=== PATIENT | male | born 1980 | race African-American/Black ===

== ENCOUNTER 2018-03-06 05:18 | Emergency (ER) | payer MEDICARE, OTHER ==
[2018-03-06] MEDS: FLUORESCEIN OPHTH 1 MG STRIP OD (08:15)
[2018-03-06] MEDS: TETRACAINE 0.5% OPHTH SOLN 4ML OD (08:15)
[2018-03-06] MEDS: NS 1,000 ML IV (08:50)
[2018-03-06] MEDS: IBUPROFEN 600 MG TAB PO (08:51)
[2018-03-06 09:08] LABS: BASO % 0.1 % (0.0-1.0); EOS % 0.2 % (0.0-3.0); HEMATOCRIT 41.4 % (42.0-52.0); HEMOGLOBIN 13.8 g/dl (13.5-17.5); IMMATURE GRANULOCYTE % 0.5 % (0-3.0); LYMPH # 2.7 10^3/uL (1.5-4.5); LYMPH % 18.8 % (24.0-44.0); MEAN CORPUSCULAR HEMOGLOBIN 30.6 pg (27.0-33.0); MEAN CORPUSCULAR HGB CONC 33.3 g/dl (32.0-36.5); MEAN CORPUSCULAR VOLUME 91.8 fl (80.0-96.0); MONO # 0.9 10^3/uL (0.0-0.8); MONO % 6.4 % (0.0-5.0); NEUTROPHILS # 10.4 10^3/uL (1.8-7.7); PLATELET COUNT, AUTOMATED 322 10^3/uL (150-450); RED BLOOD COUNT 4.51 10^6/uL (4.30-6.10); RED CELL DISTRIBUTION WIDTH 13.8 % (11.5-14.5); WHITE BLOOD COUNT 14.1 10^3/uL (4.0-10.0)
[2018-03-06 09:36] LABS: ANION GAP 6 MEQ/L (8-16); BLOOD UREA NITROGEN 12 MG/DL (7-18); CALCIUM LEVEL 8.7 MG/DL (8.5-10.1); CARBON DIOXIDE LEVEL 24 MEQ/L (21-32); CHLORIDE LEVEL 111 MEQ/L (98-107); CREATININE FOR GFR 0.88 MG/DL (0.70-1.30); ETHYL ALCOHOL (ETHANOL) 0.122 % (0.000-0.010); GLOMERULAR FILTRATION RATE > 60.0 (>60); GLUCOSE, FASTING 98 MG/DL (70-100); POTASSIUM SERUM 4.4 MEQ/L (3.5-5.1); SODIUM LEVEL 141 MEQ/L (136-145)
== END 2018-03-06 14:22 | disposition home or self-care (01) ==
LOC: M ED 05:18
DX: T76.11XA Adult physical abuse, suspected, initial encounter (principal); S00.11XA Contusion of right eyelid and periocular area, initial encounter; Y04.8XXA Assault by other bodily force, initial encounter; Y92.89 Other specified places as the place of occurrence of the external cause; F10.929 Alcohol use, unspecified with intoxication, unspecified; H11.421 Conjunctival edema, right eye; M54.9 Dorsalgia, unspecified; G89.29 Other chronic pain; F43.10 Post-traumatic stress disorder, unspecified; F17.200 Nicotine dependence, unspecified, uncomplicated; F33.9 Major depressive disorder, recurrent, unspecified; F41.9 Anxiety disorder, unspecified; Z79.899 Other long term (current) drug therapy
CPT/HCPCS: 70450

== ENCOUNTER 2018-08-12 22:00 | Inpatient (IN) | payer MEDICARE, OTHER ==
[2018-08-12 23:10] LABS: BASO % 0.2 % (0.0-1.0); EOS % 0.3 % (0.0-3.0); HEMATOCRIT 42.3 % (42.0-52.0); HEMOGLOBIN 14.4 g/dl (13.5-17.5); IMMATURE GRANULOCYTE % 0.4 % (0-3.0); LYMPH # 3.1 10^3/uL (1.5-4.5); LYMPH % 27.7 % (24.0-44.0); MEAN CORPUSCULAR HEMOGLOBIN 29.9 pg (27.0-33.0); MEAN CORPUSCULAR VOLUME 87.9 fl (80.0-96.0); MONO # 1.2 10^3/uL (0.0-0.8); MONO % 11.1 % (0.0-5.0); NEUTROPHILS # 6.7 10^3/uL (1.8-7.7); NEUTROPHILS % 60.3 % (36.0-66.0); PLATELET COUNT, AUTOMATED 316 10^3/uL (150-450); RED BLOOD COUNT 4.81 10^6/uL (4.30-6.10); RED CELL DISTRIBUTION WIDTH 13.9 % (11.5-14.5); WHITE BLOOD COUNT 11.2 10^3/uL (4.0-10.0)
[2018-08-13 00:01] LABS: AMPHETAMINES LEVEL URINE NEGATIVE (NEGATIVE); BARBITURATES URINE NEGATIVE (NEGATIVE); BENZODIAZEPINES URINE NEGATIVE (NEGATIVE); CANNABINOIDS URINE NEGATIVE (NEGATIVE); COCAINE METABOLITE URINE NEGATIVE (NEGATIVE); METHADONE URINE NEGATIVE (NEGATIVE); OPIATES URINE NEGATIVE (NEGATIVE); PHENCYCLIDINE URINE NEGATIVE (NEGATIVE)
[2018-08-13 00:02] LABS: ACETAMINOPHEN LEVEL < 2.0 UG/ML (10.0-30.0); ALBUMIN 4.4 GM/DL (3.2-5.2); ALBUMIN/GLOBULIN RATIO 1.22 (1.00-1.93); ALKALINE PHOSPHATASE 94 U/L (45-117); ALT/SGPT 67 U/L (12-78); ANION GAP 11 MEQ/L (8-16); AST/SGOT 37 U/L (7-37); BILIRUBIN,DIRECT 0.2 MG/DL (0.0-0.2); BILIRUBIN,TOTAL 0.7 MG/DL (0.2-1.0); BLOOD UREA NITROGEN 12 MG/DL (7-18); CALCIUM LEVEL 9.5 MG/DL (8.5-10.1); CARBON DIOXIDE LEVEL 21 MEQ/L (21-32); CHLORIDE LEVEL 106 MEQ/L (98-107); CPK CREATINE PHOSPHOKINASE 719 U/L (39-308); CREATININE FOR GFR 0.96 MG/DL (0.70-1.30); ETHYL ALCOHOL (ETHANOL) 0.005 % (0.000-0.010); GLOMERULAR FILTRATION RATE > 60.0 (>60); GLUCOSE, FASTING 88 MG/DL (70-100); MB/CK RELATIVE INDEX 0.63 (< OR =4); POTASSIUM SERUM 3.7 MEQ/L (3.5-5.1); SALICYLATE LEVEL 2.2 MG/DL (5.0-30.0); SODIUM LEVEL 138 MEQ/L (136-145); TROPONIN I < 0.02 NG/ML (< 0.10)
[2018-08-13 02:54] LABS: CPK CREATINE PHOSPHOKINASE 743 U/L (39-308); MB/CK RELATIVE INDEX 0.55 (< OR =4); TROPONIN I < 0.02 NG/ML (< 0.10)
[2018-08-13 05:46] LABS: KETONE, URINE AUTO RFX TRACE mg/dL (NEGATIVE); LEUKOCYTE ESTERASE UR AUTO RFX NEGATIVE (NEGATIVE); MUCUS, URINE RFX SMALL (NEGATIVE); NITRITE, URINE AUTO RFX NEGATIVE (NEGATIVE); RBC, URINE AUTO RFX 4 /HPF (0-3); SQUAM EPITHELIAL CELL UR AURFX 0 /HPF (0-6); WBC, URINE AUTO RFX 1 /HPF (0-3)
[2018-08-13] MEDS: LORazepam 2 MG TAB PO (09:30)
[2018-08-13] MEDS: SERTRALINE HCL 50 MG TAB PO (09:41)
[2018-08-13] MEDS: busPIRone 10 MG TAB PO ×2 (09:41→21:58)
[2018-08-13] MEDS: OMEPRAZOLE 20 MG CAP PO (09:41)
[2018-08-13] MEDS: VITAMIN D 1,000 INTERNATIONAL UNITS TABLET PO ×2 (09:41→21:58)
[2018-08-13] MEDS: IBUPROFEN 600 MG TAB PO (09:42)
[2018-08-13] MEDS: METOPROLOL TART 25 MG TABLET PO ×2 (09:43→21:59)
[2018-08-13] MEDS: CYCLOBENZAPRINE 10 MG TAB PO (10:02)
[2018-08-13] MEDS ORDERED: MAALOX 30 ML SUSP *UDC PO (14:00)
[2018-08-13] MEDS ORDERED: ACETAMINOPHEN TAB 650MG DOSE (2X325MG) PO (14:00)
[2018-08-13] MEDS ORDERED: MOM 30ML SUSPENSION UDC PO (14:00)
[2018-08-13] MEDS: traZODone 50 MG TAB PO (21:58)
[2018-08-13] MEDS: PRAZOSIN 1 MG CAP PO (22:01)
[2018-08-14] MEDS: SERTRALINE 100 MG TAB PO (09:39)
[2018-08-14] MEDS: THIAMINE 100 MG TAB PO (09:39)
[2018-08-14] MEDS: MULTIVITAMINS/MINERALS THERAP 1 TAB PO (09:41)
[2018-08-14] MEDS: VITAMIN D 1,000 INTERNATIONAL UNITS TABLET PO ×2 (09:41→21:46)
[2018-08-14] MEDS: OMEGA-3 1000MG CAPSULE PO (09:41)
[2018-08-14] MEDS: OMEPRAZOLE 20 MG CAP PO (09:41)
[2018-08-14] MEDS: busPIRone 10 MG TAB PO ×3 (09:41→21:46)
[2018-08-14] MEDS: METOPROLOL TART 25 MG TABLET PO ×2 (09:41→21:46)
[2018-08-14] MEDS: CYCLOBENZAPRINE 10 MG TAB PO (09:43)
[2018-08-14] MEDS: IBUPROFEN 600 MG TAB PO (09:43)
[2018-08-14 17:24] LABS: KETONE, URINE AUTO RFX NEGATIVE (NEGATIVE); LEUKOCYTE ESTERASE UR AUTO RFX NEGATIVE (NEGATIVE); MUCUS, URINE RFX SMALL (NEGATIVE); NITRITE, URINE AUTO RFX NEGATIVE (NEGATIVE); RBC, URINE AUTO RFX 5 /HPF (0-3); SPECIFIC GRAVITY UR AUTO RFX 1.024 (1.002-1.035); SQUAM EPITHELIAL CELL UR AURFX 0 /HPF (0-6); WBC, URINE AUTO RFX 3 /HPF (0-3)
[2018-08-14] MEDS: PRAZOSIN 1 MG CAP PO (21:44)
[2018-08-14] MEDS: traZODone 50 MG TAB PO (21:46)
[2018-08-15 07:05] LABS: HEMOGLOBIN 14.3 g/dl (13.5-17.5); MEAN CORPUSCULAR HEMOGLOBIN 29.9 pg (27.0-33.0); MEAN CORPUSCULAR HGB CONC 32.5 g/dl (32.0-36.5); MEAN CORPUSCULAR VOLUME 91.9 fl (80.0-96.0); PLATELET COUNT, AUTOMATED 298 10^3/uL (150-450); RED BLOOD COUNT 4.79 10^6/uL (4.30-6.10); RED CELL DISTRIBUTION WIDTH 13.8 % (11.5-14.5); WHITE BLOOD COUNT 9.9 10^3/uL (4.0-10.0)
[2018-08-15 07:38] LABS: ESTIMATED AVERAGE GLUCOSE 117 MG/DL (60-110); HEMOGLOBIN A1c 5.7 %
[2018-08-15 07:43] LABS: ALBUMIN 3.7 GM/DL (3.2-5.2); ALBUMIN/GLOBULIN RATIO 0.97 (1.00-1.93); ALKALINE PHOSPHATASE 89 U/L (45-117); ALT/SGPT 53 U/L (12-78); ANION GAP 8 MEQ/L (8-16); AST/SGOT 28 U/L (7-37); BILIRUBIN,TOTAL 0.5 MG/DL (0.2-1.0); BLOOD UREA NITROGEN 13 MG/DL (7-18); CARBON DIOXIDE LEVEL 24 MEQ/L (21-32); CHLORIDE LEVEL 110 MEQ/L (98-107); CPK CREATINE PHOSPHOKINASE 486 U/L (39-308); CREATININE FOR GFR 0.89 MG/DL (0.70-1.30); GLOMERULAR FILTRATION RATE > 60.0 (>60); GLUCOSE, FASTING 95 MG/DL (70-100); POTASSIUM SERUM 4.2 MEQ/L (3.5-5.1); SODIUM LEVEL 142 MEQ/L (136-145); T UPTAKE 29 % (33-40); THYROXINE (T4) 10.2 UG/DL (4.5-12.0); TOTAL PROTEIN 7.5 GM/DL (6.4-8.2)
[2018-08-15] MEDS: CYCLOBENZAPRINE 10 MG TAB PO (08:30)
[2018-08-15] MEDS: busPIRone 10 MG TAB PO (08:30)
[2018-08-15] MEDS: SERTRALINE 100 MG TAB PO (08:30)
[2018-08-15] MEDS: OMEGA-3 1000MG CAPSULE PO (08:31)
[2018-08-15] MEDS: VITAMIN D 1,000 INTERNATIONAL UNITS TABLET PO (08:31)
[2018-08-15] MEDS: METOPROLOL TART 25 MG TABLET PO (08:31)
[2018-08-15] MEDS: MULTIVITAMINS/MINERALS THERAP 1 TAB PO (08:31)
[2018-08-15] MEDS: THIAMINE 100 MG TAB PO (08:31)
[2018-08-15] MEDS: OMEPRAZOLE 20 MG CAP PO (08:31)
[2018-08-15] MEDS: IBUPROFEN 600 MG TAB PO (08:31)
[2018-08-15 11:35] LABS: HEPATITIS B SURFACE ANTIGEN NEGATIVE (NEGATIVE)
[2018-08-15 11:49] LABS: HEPATITIS C VIRUS ABY INDEX 0.1 INDEX (<0.8)
[2018-08-15 11:52] LABS: HEPATITIS B CORE ANTIBODY IGM NEGATIVE (NEGATIVE)
[2018-08-15 11:53] LABS: HEPATITIS A ANTIBODY IGM NEGATIVE (NEGATIVE)
[2018-08-15 11:54] LABS: HIV 1&2 SCREEN CENTAUR NEGATIVE (NEGATIVE)
== END 2018-08-15 13:10 | disposition home or self-care (01) | DRG 881 ==
LOC: M ED 22:00 → M ED INP 08-13 13:46 → M PSY 08-13 15:46
DX: F32.9 Major depressive disorder, single episode, unspecified (principal); I10 Essential (primary) hypertension; K21.9 Gastro-esophageal reflux disease without esophagitis; G47.00 Insomnia, unspecified; G47.33 Obstructive sleep apnea (adult) (pediatric); E66.9 Obesity, unspecified; R94.6 Abnormal results of thyroid function studies; M54.9 Dorsalgia, unspecified; N50.819 Testicular pain, unspecified; R74.8 Abnormal levels of other serum enzymes; Z68.32 Body mass index [BMI] 32.0-32.9, adult; Z91.5 Personal history of self-harm; Z79.899 Other long term (current) drug therapy

== ENCOUNTER 2020-08-11 12:09 | Emergency (ER) | payer MEDICARE, OTHER ==
[~2020-08-11] VITALS: Ht 185.4 cm; Wt 127.9 kg
[~2020-08-11 12:09] MED LIST: BUPR100T3 PO; BUSP10TA PO; CYCL-707 PO; FISH7.5C PO; IBUP-1022 PO; MELA3TAB49 PO; METO1TAB87 PO; OMEP1CAP73 PO; OMEP40CA97 PO; PRAZ1CAP PO; SERT-138 PO; SERT-141 PO; THIA100T7 PO; TRAZ-257 PO; UREA1CRE EX; UREA20CR4 TOP; VITA100067 PO; VITMTA PO
[2020-08-11 12:11] VITALS: BP 136/76
[2020-08-11] MEDS ORDERED: ATOR80TA59 PO (12:19)
[2020-08-11] MEDS ORDERED: VITA50005 PO (12:21)
[2020-08-11] MEDS ORDERED: BACT800T5 PO (13:05)
== END 2020-08-11 13:20 | disposition home or self-care (01) ==
LOC: M ED 12:09
DX: L03.311 Cellulitis of abdominal wall (principal); I10 Essential (primary) hypertension; K21.9 Gastro-esophageal reflux disease without esophagitis; F33.9 Major depressive disorder, recurrent, unspecified; F41.9 Anxiety disorder, unspecified; F43.10 Post-traumatic stress disorder, unspecified; Z79.899 Other long term (current) drug therapy; F17.210 Nicotine dependence, cigarettes, uncomplicated

== ENCOUNTER 2020-08-17 14:18 | Emergency (ER) | payer MEDICARE, OTHER ==
[~2020-08-17] VITALS: Ht 185.4 cm; Wt 126.2 kg
[~2020-08-17 14:18] MED LIST changes: +ATOR80TA59 PO; +BACT800T5 PO; +VITA50005 PO
[2020-08-17] MEDS ORDERED: IBUP200T45 PO (14:28)
[2020-08-17 18:25] LABS: BASO % 0.5 % (0.0-1.0); HEMATOCRIT 46.9 % (42.0-52.0); HEMOGLOBIN 15.6 g/dl (13.5-17.5); LYMPH # 2.4 10^3/uL (1.5-5.0); LYMPH % 41.4 % (24.0-44.0); MEAN CORPUSCULAR HEMOGLOBIN 29.9 pg (27.0-33.0); MEAN CORPUSCULAR HGB CONC 33.3 g/dl (32.0-36.5); MEAN CORPUSCULAR VOLUME 89.8 fl (80.0-96.0); MONO # 0.4 10^3/uL (0.0-0.8); MONO % 6.6 % (0.0-5.0); PLATELET COUNT, AUTOMATED 255 10^3/uL (150-450); RED BLOOD COUNT 5.22 10^6/uL (4.30-6.10); WHITE BLOOD COUNT 5.9 10^3/uL (4.0-10.0)
[2020-08-17 18:54] LABS: ERYTHROCYTE SEDIMENTATION RATE 5 mm/hr (0-15)
[2020-08-17 18:57] LABS: ALBUMIN 4.1 GM/DL (3.2-5.2); ALT/SGPT 175 U/L (12-78); BILIRUBIN,DIRECT 0.2 MG/DL (0.0-0.2); BILIRUBIN,TOTAL 0.5 MG/DL (0.2-1.0); C REACTIVE PROTEIN QUANTITATIV 2.53 MG/DL (0.00-0.30); TOTAL PROTEIN 7.9 GM/DL (6.4-8.2)
[2020-08-17 20:27] LABS: MONO REFLEX EBV COMP NEGATIVE (NEGATIVE)
[2020-08-17 20:41] LABS: HEPATITIS B SURFACE ANTIGEN NEGATIVE (NEGATIVE)
[2020-08-17 21:09] LABS: HEPATITIS B CORE ANTIBODY IGM NEGATIVE (NEGATIVE); HEPATITIS C VIRUS ABY INDEX 0.1 INDEX (<0.8)
[2020-08-17 21:11] LABS: HEPATITIS A ANTIBODY IGM NEGATIVE (NEGATIVE)
--- NOTE | 2020-08-17 22:25 | REPVR ---
PROCEDURE INFORMATION: Exam: US Abdomen, Limited; Right Upper Quadrant Exam date and time: 08/17/2020 8:38 PM Age: 40 years old Clinical indication: Abnormal findings; Abnormal lab test; Elevated liver enzymes; Additional info: Fever/elevated lever enzymes TECHNIQUE: Imaging protocol: US abdomen. Real time ultrasound with image documentation. Limited exam focused on the right upper quadrant. COMPARISON: No relevant prior studies available. FINDINGS: Liver: Normal. No masses. Gallbladder: Normal. No gallstones. There is no gallbladder wall thickening. Common bile duct: Normal measuring 2.2 mm. No stones. No dilation. Pancreas: Visualized pancreas is unremarkable. Right kidney: Normal measuring 13.3 cm. No mass. No hydronephrosis. IMPRESSION: No acute findings. Electronically signed by: Sinai Gray On 08/17/2020 22:25:07 PM
[2020-08-17] MEDS ORDERED: IBUPROFEN 800 MG TAB PO ONE (22:45)
--- NOTE | 2020-08-17 23:07 | REPVR ---
PROCEDURE INFORMATION: Exam: XR Chest, 2 Views Exam date and time: 08/17/2020 11:00 PM Age: 40 years old Clinical indication: Other: Fever TECHNIQUE: Imaging protocol: XR of the chest Views: 2 views. COMPARISON: CR PORTABLE CHEST X-RAY 08/12/2018 11:00 PM FINDINGS: Lungs: Unremarkable. No consolidation. Pleural space: Unremarkable. No pleural effusion. No pneumothorax. Heart/Mediastinum: Unremarkable. No cardiomegaly. Bones/joints: Unremarkable. IMPRESSION: No acute findings. Electronically signed by: Sinai Gray On 08/17/2020 23:06:59 PM
[2020-08-17 23:48] VITALS: BP 140/84
[2020-08-19 14:12] LABS: EBV AB TO NUCLEAR ANTIGEN >600.0 U/mL (0.0-17.9); EBV VIRAL CAPSID AG IgG >600.0 U/mL (0.0-17.9); EBV VIRAL CAPSID AG IgM <36.0 U/mL (0.0-35.9)
== END 2020-08-17 23:50 | disposition home or self-care (01) ==
LOC: M ED 14:18
DX: F17.200 Nicotine dependence, unspecified, uncomplicated (principal); K21.9 Gastro-esophageal reflux disease without esophagitis; R94.5 Abnormal results of liver function studies; R50.9 Fever, unspecified; M54.9 Dorsalgia, unspecified; I10 Essential (primary) hypertension; E78.5 Hyperlipidemia, unspecified; F41.9 Anxiety disorder, unspecified; F32.9 Major depressive disorder, single episode, unspecified; F43.10 Post-traumatic stress disorder, unspecified; Z79.1 Long term (current) use of non-steroidal anti-inflammatories (NSAID); Z79.899 Other long term (current) drug therapy

== ENCOUNTER → 2020-08-19 | Outpatient (CLI) | payer MEDICARE, OTHER ==
[~2020-08-19] MED LIST changes: +IBUP200T45 PO
[2020-08-19 14:11] LABS: BASO % 0.2 % (0.0-1.0); EOS % 0.4 % (0.0-3.0); HEMATOCRIT 42.9 % (42.0-52.0); LYMPH # 2.4 10^3/uL (1.5-5.0); LYMPH % 44.5 % (24.0-44.0); MEAN CORPUSCULAR HEMOGLOBIN 29.2 pg (27.0-33.0); MEAN CORPUSCULAR HGB CONC 32.6 g/dl (32.0-36.5); MEAN CORPUSCULAR VOLUME 89.6 fl (80.0-96.0); MONO # 0.6 10^3/uL (0.0-0.8); MONO % 11.2 % (0.0-5.0); NEUTROPHILS # 2.4 10^3/uL (1.5-8.5); NEUTROPHILS % 43.3 % (36.0-66.0); PLATELET COUNT, AUTOMATED 278 10^3/uL (150-450); RED BLOOD COUNT 4.79 10^6/uL (4.30-6.10); WHITE BLOOD COUNT 5.5 10^3/uL (4.0-10.0)
[2020-08-19 14:45] LABS: ALBUMIN 3.9 GM/DL (3.2-5.2); BILIRUBIN,DIRECT 0.2 MG/DL (0.0-0.2); BILIRUBIN,TOTAL 0.6 MG/DL (0.2-1.0)
== END ==
LOC: M LAB 13:12
PROVIDERS: ATTEND Physician Assistant
DX: R74.0 Nonspecific elevation of levels of transaminase and lactic acid dehydrogenase [LDH] (principal)

== ENCOUNTER → 2024-05-18 | Outpatient (CLI) | payer OTHER, MEDICARE ==
[~2024-05-18] MED LIST changes: +BUPR-70 PO; -BUPR100T3 PO; +ERGO500029 PO; +FISH10005 PO; -FISH7.5C PO; -IBUP200T45 PO; +IBUP200T46 PO; +OMEP40CA4 PO; -OMEP40CA97 PO; -VITA50005 PO
== END ==
LOC: M SLEEP 20:00
PROVIDERS: ATTEND Nurse Practitioner Family
DX: G47.33 Obstructive sleep apnea (adult) (pediatric) (principal)